=== PATIENT | female | born 1965 | race Asian ===

== ENCOUNTER 2019-12-12 15:38 | Observation (INO) ==
[2019-12-12] MEDS ORDERED: IOPAMIDOL 100 ML BOTTLE IV ONE (15:39)
[2019-12-12] MEDS ORDERED: 0.9 % SODIUM CHLORIDE 1,000 ML IV ONE (15:50)
[2019-12-12] MEDS ORDERED: HYDROmorphone 0.5 MG/0.5 ML SYRINGE IV PRN (15:50)
[2019-12-12 16:27] LABS: POC Blood Urea Nitrogen 15 mg/dl (6-20); POC CO2 22 mmol/L (22-30); POC Calcium, Ionized 1.09 mmol/L (1.16-1.32); POC Chloride 105 mmol/L (96-108); POC Creatinine 0.5 mg/dl (0.6-1.1); POC Glucose, Random 99 mg/dL (70-105); POC Potassium 3.5 mmol/L (3.3-5.1); POC Sodium 138 mmol/L (133-145)
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
[2019-12-12 16:56] LABS: Basophils # (Auto) 0.02 K/mcL (0.00-0.30); Basophils % (Auto) 0.2 % (0.0-2.0); Eosinophils # (Auto) 0.02 K/mcL (0.00-0.70); Eosinophils % (Auto) 0.2 % (0.0-7.0); Granulocytes % (Auto) 86.1 % (38.0-78.0); Hematocrit 41.1 % (34.1-44.9); Hemoglobin 13.5 g/dL (11.2-15.7); Lymphocytes # (Auto) 0.91 K/mcL (1.50-4.80); Lymphocytes % (Auto) 7.5 % (15.5-49.0); Mean Cell Volume 88.4 fL (80.0-100.0); Mean Corpuscular HGB Conc 32.8 g/dL (31.0-36.0); Mean Platelet Volume 9.2 fL (7.4-10.4); Monocytes # (Auto) 0.72 K/mcL (0.10-0.90); Platelet Count 188 K/mcL (140-440); RBC 4.65 M/mcL (3.59-5.38); Red Cell Distribution Width 12.3 % (11.5-14.5); WBC 12.1 K/mcL (4.50-11.00)
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
[2019-12-12] MEDS ORDERED: ONDANSETRON 4 MG/2 ML VIAL IV PRN (20:05)
[2019-12-12] MEDS: 0.9 % SODIUM CHLORIDE 10 ML SYRINGE IV SCH (22:50)
[2019-12-12] MEDS: 0.9 % SODIUM CHLORIDE 1,000 ML IV SCH (22:51)
[2019-12-13] MEDS: ACETAMINOPHEN 325 MG TABLET PO PRN ×2 (00:39→15:21)
[2019-12-13 02:17] LABS: Appearance,Urine CLEAR; Bacteria,Urine 0 /hpf (0); Bilirubin,Urine NEG (NEG); Color,Urine STRAW; Culture Indicated,Urine NO; Glucose,Urine (UA) NEGATIVE (NEG); Ketones,Urine 20 mg/dL (NEG); Leukocyte Esterase,Urine NEG /uL (NEG); Mucus,Urine FEW /hpf (0); Nitrate,Urine NEG (NEG); Protein,Urine NEG (NEG); Specific Gravity,Urine 1.015 (1.000-1.035); Urine Blood NEG mg/dL (<0.03); Urine RBC 0 /hpf (0-1); Urine Squamous Epithelial Cell < 1 /hpf (0-4); Urine WBC 1 /hpf (0-4); Urobilinogen,Urine NEG (NEG)
[2019-12-13] MEDS: 0.9 % SODIUM CHLORIDE 1,000 ML IV SCH ×3 (04:15→12:33)
[2019-12-13] MEDS: 0.9 % SODIUM CHLORIDE 10 ML SYRINGE IV SCH ×2 (05:19→15:22)
--- NOTE | 2019-12-13 08:25 | XRay Report ---
History: Follow-up right-sided pneumothorax following fracture FINDINGS: there is a small right-sided pneumothorax which is less than 5% in volume. This has improved since yesterday. The fracture located posterior laterally in the right ninth rib is difficult to see. This was better demonstrated on yesterday's CT scan. There is no pleural effusion. The lungs are clear. No mediastinal shift is present. The heart size is normal. IMPRESSION: Improving right-sided pneumothorax Interpreted and Authenticated by: Freddy Osullivan 12/13/19
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
[2019-12-13 08:43] LABS: Basophils # (Auto) 0 K/mcL (0.00-0.30); Basophils % (Auto) 0 % (0.0-2.0); Eosinophils # (Auto) 0.02 K/mcL (0.00-0.70); Eosinophils % (Auto) 0.3 % (0.0-7.0); Hematocrit 35.3 % (34.1-44.9); Hemoglobin 11.8 g/dL (11.2-15.7); Lymphocytes # (Auto) 1.43 K/mcL (1.50-4.80); Mean Cell Volume 88.5 fL (80.0-100.0); Mean Corpuscular HGB Conc 33.4 g/dL (31.0-36.0); Mean Platelet Volume 9.6 fL (7.4-10.4); Monocytes # (Auto) 0.66 K/mcL (0.10-0.90); Monocytes % (Auto) 9.7 % (1.0-12.0); Platelet Count 174 K/mcL (140-440); RBC 3.99 M/mcL (3.59-5.38); Red Cell Distribution Width 12.3 % (11.5-14.5); WBC 6.8 K/mcL (4.50-11.00)
[2019-12-13] MEDS: HYDROcodone/APAP 5/325MG TABLET PO PRN ×2 (08:49→13:57)
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
[2019-12-13] MEDS ORDERED: LIDOCAINE 1% 20 ML VIAL SQ ONE (17:34)
[2019-12-13] MEDS ORDERED: BUPIVACAINE PF 0.5% 10 ML VIAL IJ ONE (17:34)
== END 2019-12-13 17:35 | disposition home or self-care (01) ==
LOC: MEDSUR 15:38 → ED 15:38 → MEDSUR 21:34
PROVIDERS: ADMIT Family Medicine Adult Medicine; ATTEND Family Medicine Adult Medicine